=== PATIENT | male | born 1960 | race African-American/Black ===

== ENCOUNTER 2017-03-10 14:51 | Emergency (ER) | payer BC, OTHER ==
[2017-03-10] MEDS ORDERED: Ibuprofen 800 MG TAB ONE (15:02)
[2017-03-10] MEDS ORDERED: HYDROcodone/Acetaminophen 10/325 mg Tablet ONE (15:02)
[2017-03-10] MEDS ORDERED: Cephalexin 250 MG CAP ONE (15:02)
--- NOTE | 2017-03-10 17:09 | RAD ---
RIGHT FOREARM 2 VIEWS: Date: 03/10/17 A nail is seen in or overlying the distal radial shaft. It appears to enter at least the anterior co rtex of the bone. No bony fractures seen. IMPRESSION: Nail in the distal radial shaft. POS: HOME
== END 2017-03-10 15:36 | disposition home or self-care (01) ==
LOC: BURERS 14:51
DX: S50.851A Superficial foreign body of right forearm, initial encounter (principal); Z23 Encounter for immunization; W45.0XXA Nail entering through skin, initial encounter
CPT/HCPCS: 90471